=== PATIENT | female | born 1955 | race Caucasian/White ===

== ENCOUNTER 2018-05-25 18:17 | Emergency (ER) | payer OTHER ==
[2018-05-25] MEDS ORDERED: Sodium Chloride 0.9% 100 ML IV SCH (20:15)
[2018-05-25] MEDS ORDERED: Iopamidol 755 Mg/ML 100 ML Bottle IV SCH (20:15)
[2018-05-25] MEDS: Sodium Chloride 0.9% 10 ML Syringe FLUSH PRN ×2 (20:18→20:43)
--- NOTE | 2018-05-25 22:03 | EDM.PDOC ---
ED HPI GENERAL MEDICAL PROBLEM - General Chief Complaint: Lower Extremity Injury/Pain Stated Complaint: CONCERN ABOUT LEFT LEG Time Seen by Provider: 05/25/18 18:50 Source of Information: Reports: Patient, Family History Limitations: Reports: No Limitations - History of Present Illness INITIAL COMMENTS - FREE TEXT/NARRATIVE: pt arrived with a swollen left leg. She had noted some nodules on the inner aspect of the knee a couple of days ago and today her leg became very swollen. Onset: Gradual, Other (last 2 days. ) Duration: Hour(s): Location: Reports: Lower Extremity, Left Associated Symptoms: Reports: No Other Symptoms - Related Data Allergies Allergy/AdvReac Type Severity Reaction Status Date / Time No Known Allergies Allergy Verified 05/25/18 18:47 Home Meds: Home Meds NK [No Known Home Meds] 05/25/18 [History] Past Medical History HEENT History: Reports: Hard of Hearing [employer] WORK[employer] History: Reports: Musculoskeletal History: Reports: Arthritis, Back Pain, Chronic - Past Surgical History HEENT Surgical History: Reports: Other (See Below) Other HEENT Surgeries/Procedures: ear surgery Female Surgical History: Reports: Tubal Ligation Social & Family History - Caffeine Use Caffeine Use: Reports: Coffee - Recreational Drug Use Recreational Drug Use: No Review of Systems - Review of Systems Review Of Systems: See Below Constitutional: Reports: No Symptoms Eyes: Reports: No Symptoms Ears: Reports: No Symptoms Nose: Reports: No Symptoms Mouth/Throat: Reports: No Symptoms Respiratory: Reports: No Symptoms Cardiovascular: Reports: No Symptoms GI/Abdominal: Reports: No Symptoms Genitourinary: Reports: No Symptoms Musculoskeletal: Reports: Other ( swelling of the left leg. ) Skin: Reports: No Symptoms Neurological: Reports: Paresthesia Psychiatric: Reports: No Symptoms ED EXAM, GENERAL - Physical Exam Exam: See Below Free Text/Narrative:: Pt arrived with pain and swelling in the left leg. Today she worked a whole shift and was on her feet. Exam Limited By: No Limitations General Appearance: Alert, Mild Distress Ears: Normal TMs Nose: Normal Inspection Throat/Mouth: Normal Inspection Head: Atraumatic Neck: Normal Inspection Respiratory/Chest: No Respiratory Distress, Other ( o2 sats were on the low side. She is a smoker and smokes 1 pack per day. ) Cardiovascular: Regular Rate, Rhythm GI/Abdominal: Soft, Non-Tender (Female) Exam: Deferred Rectal (Female) Exam: Deferred Back Exam: Normal Inspection Extremities: Other (left leg looks red and is definitely swollen. She is tender on the inner aspect of the knee. ) Neurological: Alert, Oriented, Normal Cognition Psychiatric: Normal Affect Course - Vital Signs Last Recorded V/S: Last Vital Signs Temp 36.8 C 05/25/18 18:45 Pulse 82 05/25/18 21:44 Resp 18 05/25/18 21:44 BP 119/64 05/25/18 21:44 Pulse Ox 97 05/25/18 21:44 - Orders/Labs/Meds Orders: Active Orders 24 hr Category Date Time Status Ang Chest [CT] Stat Exams 05/25/18 19:51 Taken VL Duplex Lwr Ext Veins Ltd Lt [US] Stat Exams 05/25/18 18:49 Taken Iopamidol [Isovue-370 (76%)] Med 05/25/18 20:15 Active 100 ml IV . DIRECTED Sodium Chloride 0.9% [Normal Saline] 100 ml Med 05/25/18 20:15 Active IV ASDIRECTED Sodium Chloride 0.9% [Saline Flush] Med 05/25/18 20:02 Active 10 ml FLUSH ASDIRECTED PRN Medication Orders Sodium Chloride (Normal Saline) 100 mls @ 3 mls/sec IV ASDIRECTED ALEXA Last Admin: 05/25/18 20:43 Dose: 3 mls/sec Iopamidol (Isovue-370 (76%)) 100 ml IV . DIRECTED ALEXA Last Admin: 05/25/18 20:43 Dose: 100 ml Sodium Chloride (Saline Flush) 10 ml FLUSH ASDIRECTED PRN PRN Reason: Keep Vein Open Last Admin: 05/25/18 20:43 Dose: 10 ml Admin: 05/25/18 20:18 Dose: 10 ml Labs: Laboratory Tests 05/25/18 05/25/18 Range/Units 19:01 19:01 WBC 5.6 (4.5-11.0) K/uL RBC 5.07 (3.30-5.50) M/uL Hgb 19.5 H* (12.0-15.0) g/dL Hct 56.0 H (36.0-48.0) % MCV 111 H (80-98) fL MCH 39 H (27-31) pg MCHC 35 (32-36) % Plt Count 103 L (150-400) K/uL Neut % (Auto) 66 (36-66) % Lymph % (Auto) 20 L (24-44) % Becker % (Auto) 11 H (2-6) % Eos % (Auto) 2 (2-4) % Baso % (Auto) 1 (0-1) % Sodium 139 L (140-148) mmol/L Potassium 3.6 (3.6-5.2) mmol/L Chloride 99 L (100-108) mmol/L Carbon Dioxide 32 (21-32) mmol/L Anion Gap 11.6 (5.0-14.0) mmol/L BUN 9 (7-18) mg/dL Creatinine 0.7 (0.6-1.0) mg/dL Est Cr Clr Drug Dosing 64.49 mL/min Estimated GFR (MDRD) > 60 (>60) Glucose 104 (74-106) mg/dL Calcium 8.8 (8.5-10.1) mg/dL Meds: Medications Generic Name Dose Route Start Last Admin Trade Name Freq PRN Reason Stop Dose Admin Sodium Chloride 100 mls @ 3 mls/sec 05/25/18 20:15 05/25/18 20:43 Normal Saline IV 3 mls/sec ASDIRECTED ALEXA Administration Iopamidol 100 ml 05/25/18 20:15 05/25/18 20:43 Isovue-370 (76%) IV 100 ml . DIRECTED ALEXA Administration Sodium Chloride 10 ml 05/25/18 20:02 05/25/18 20:43 Saline Flush FLUSH 10 ml ASDIRECTED PRN Administration Keep Vein Open - Re-Assessments/Exams Free Text/Narrative Re-Assessment/Exam: 05/25/18 22:03 Her Us reveals clot in the femoral and in the popliteal. Her hg was found to be 19.6. Her platlets are low at 100. Departure - Departure Time of Disposition: 22:04 Disposition: Admitted As Inpatient 68 Condition: Fair Clinical Impression: Left leg DVT, Elevated hemoglobin, Temporary low platelet count - Discharge Information Referrals: PCP,None [Primary Care Provider] - Care Plan Goals: admit to Dr Hernández - My Orders Last 24 Hours: My Active Orders 05/25/18 18:49 VL Duplex Lwr Ext Veins Ltd Lt [US] Stat 05/25/18 19:51 Ang Chest [CT] Stat 05/25/18 20:02 Sodium Chloride 0.9% [Saline Flush] 10 ml FLUSH ASDIRECTED PRN 05/25/18 20:15 Iopamidol [Isovue-370 (76%)] 100 ml IV . DIRECTED Sodium Chloride 0.9% [Normal Saline] 100 ml IV ASDIRECTED - Assessment/Plan Last 24 Hours: My Active Orders 05/25/18 18:49 VL Duplex Lwr Ext Veins Ltd Lt [US] Stat 05/25/18 19:51 Ang Chest [CT] Stat 05/25/18 20:02 Sodium Chloride 0.9% [Saline Flush] 10 ml FLUSH ASDIRECTED PRN 05/25/18 20:15 Iopamidol [Isovue-370 (76%)] 100 ml IV . DIRECTED Sodium Chloride 0.9% [Normal Saline] 100 ml IV ASDIRECTED
--- NOTE | 2018-05-25 23:06 | PCM.CONSN ---
- General Info Date of Service: 05/25/18 Admission Dx/Problem (Free Text): dvt Subjective Update: 62-year-old female with adifferent past medical history, chronic smoker came to the the ED with a complaining of left leg pain which started since last 4 days which is constantly present. Patient reports that the pain is 3-4/10 intensity, throbbing type pain associated with redness. Patient denies any recent injury, fall. Patient denies any recent new medications. Patient denies any recent fever , sick contacts. Patient denies any chest pain, breathing difficulty, headaches , dizziness, lightheadedness, disturbance in bowel or bladder habits. In the ED patient had ultrasound of lower extremity which showed deep venous thrombosis. Patient saturations are 93%. Patient's CT chest didn't did not show any pulmonary embolism. Vitals are stable. Patient to ED labs showed high hemoglobin with high hematocrit Patient previously had complete evaluation and regarding high hemoglobin level with peripheral smear showed macrocytosis with secondary etiology. Patient ED labs showed platelet count of 110. Patient denies any nose bleeds, blood in the stool, blood in the urine. Patient previous platelet counts are at baseline 150 - 160. Denies any recent tick bite , recent fevers. Patient denies any significant family history of hematological disorders. Other review of systems are not significant. a Functional Status: Reports: Pain Controlled - Review of Systems General: Denies: Fever, Weakness HEENT: Denies: Contact Lenses, Dysphasia Pulmonary: Denies: Shortness of Breath, Pleuritic Chest Pain Cardiovascular: Denies: Chest Pain, Palpitations Gastrointestinal: Denies: Abdominal Pain, Constipation Genitourinary: Denies: Dysuria, Frequency Musculoskeletal: Denies: Neck Pain, Shoulder Pain - Patient Data Vitals - Most Recent: Last Vital Signs Temp 36.8 C 05/25/18 18:45 Pulse 82 05/25/18 21:44 Resp 18 05/25/18 21:44 BP 119/64 05/25/18 21:44 Pulse Ox 97 05/25/18 21:44 Weight - Most Recent: 51.4 kg Lab Results Last 24 Hours: Laboratory Results - last 24 hr 05/25/18 05/25/18 05/25/18 Range/Units 19:01 19:01 22:38 WBC 5.6 (4.5-11.0) K/uL RBC 5.07 (3.30-5.50) M/uL Hgb 19.5 H* (12.0-15.0) g/dL Hct 56.0 H (36.0-48.0) % MCV 111 H (80-98) fL MCH 39 H (27-31) pg MCHC 35 (32-36) % Plt Count 103 L (150-400) K/uL Neut % (Auto) 66 (36-66) % Lymph % (Auto) 20 L (24-44) % [place] % (Auto) 11 H (2-6) % Eos % (Auto) 2 (2-4) % Baso % (Auto) 1 (0-1) % PT 11.4 (9.5-12.0) sec INR 1.04 (0.80-1.20) Sodium 139 L (140-148) mmol/L Potassium 3.6 (3.6-5.2) mmol/L Chloride 99 L (100-108) mmol/L Carbon Dioxide 32 (21-32) mmol/L Anion Gap 11.6 (5.0-14.0) mmol/L BUN 9 (7-18) mg/dL Creatinine 0.7 (0.6-1.0) mg/dL Est Cr Clr Drug Dosing 64.49 mL/min Estimated GFR (MDRD) > 60 (>60) Glucose 104 (74-106) mg/dL Calcium 8.8 (8.5-10.1) mg/dL Med Orders - Current: Current Medications Sodium Chloride (Normal Saline) 100 mls @ 3 mls/sec IV ASDIRECTED ALEXA Last Admin: 05/25/18 20:43 Dose: 3 mls/sec Iopamidol (Isovue-370 (76%)) 100 ml IV . DIRECTED [facility] Last Admin: 05/25/18 20:43 Dose: 100 ml Sodium Chloride (Saline Flush) 10 ml FLUSH ASDIRECTED PRN PRN Reason: Keep Vein Open Last Admin: 05/25/18 20:43 Dose: 10 ml - Exam General: Alert, Oriented HEENT: Pupils Equal, Pupils Reactive Neck: Supple Lungs: Clear to Auscultation, Normal Respiratory Effort Cardiovascular: Regular Rate, Regular Rhythm GI/Abdominal Exam: Normal Bowel Sounds, Soft, Non-Tender Extremities: Leg Pain, Increased Warmth, Redness. No: Limited Range of Motion, Mottled, Pallor Skin: Warm, Dry, Intact Wound/Incisions: Healing Well Neurological: No New Focal Deficit Psy/Mental Status: Alert, Normal Affect Consult PN Assessment/Plan (1) Elevated hemoglobin SNOMED Code(s): 183353888 Code(s): D58.2 - OTHER HEMOGLOBINOPATHIES Current Visit: Yes (2) Left leg DVT SNOMED Code(s): 783204226 Code(s): I82.402 - ACUTE EMBOLISM AND THOMBOS UNSP DEEP VEINS OF L LOW EXTREM Current Visit: Yes (3) Temporary low platelet count SNOMED Code(s): 406967925 Code(s): D69.6 - THROMBOCYTOPENIA, UNSPECIFIED Current Visit: Yes Problem List Initiated/Reviewed/Updated: Yes Plan: 62-year-old female with no significant past medical history came to the ED with a complaining of left leg pain and diagnosed with a left femoral, left popliteal vein deep vein thrombosis. Patient ED labs showed high hemoglobin, hematocrit due to chronic smoking. Discussed with the patient in detail about etiology, treatment options, management of deep venous thrombosis and findings of low platelet count. Explain in detail about inpatient, outpatient management. Patient wants to proceed with outpatient management and doesn't want to admit in to the hospital. Discussed in detail about the treatment options including Lovenox injections along with Coumadin and new anticoagulation. Patient wants to proceed with xarelto medication and wants to follow with primary care physician for further management. Recommendations: Start xarelto 15 mg twice daily for 21 days and then 20 mg once daily Recommend total anticoagulation duration at least 6 months Follow-up appointment with PCP in 1-2 days Follow up appointment with PCP for temporary asymptomatic thrombocytopenia outpatient management
[2018-05-26] MEDS ORDERED: Rivaroxaban 15 MG Tab PO SCH (09:00)
== END 2018-05-25 23:46 | disposition critical access hospital (66) ==
LOC: JP.ED 18:17
DX: I82.412 Acute embolism and thrombosis of left femoral vein (principal); I82.442 Acute embolism and thrombosis of left tibial vein; I82.432 Acute embolism and thrombosis of left popliteal vein; D58.2 Other hemoglobinopathies; D69.1 Qualitative platelet defects
CPT/HCPCS: 36415; 71275; 80048; 85025; 85610; 93971; 99285; A9270; J7030; J7050; Q9967